=== PATIENT | male | born 1965 | race Caucasian/White ===

== ENCOUNTER 2019-11-05 12:15 | Inpatient (IN) ==
[2019-11-05] MEDS ORDERED: NS 1,000 ML IV ONE ×2 (13:13→15:13)
[2019-11-05] MEDS ORDERED: THIAMINE 100 MG in NS 50 ML IV ONE (13:13)
[2019-11-05] MEDS ORDERED: ATIVAN IV ONE (13:14)
[2019-11-05 13:41] LABS: BASO# 0.02 X1000 (0.0-0.2); BASO% 0.1 % (0.0-0.8); EOS# 0.01 X1000 (0.0-0.7); EOS% 0.1 % (0.0-10.0); HEMOGLOBIN 18.3 g/dL (14.0-18.0); IMM GRAN# 0.02 X1000 (0.0-0.04); IMM GRAN% 0.1 % (0.0-0.5); LYMPH# 0.56 X1000 (1.2-3.4); LYMPH% 3.7 % (20.5-51.1); MCH 31.4 PG (27-31); MCHC 34.5 g/dL (33-37); MCV 91.1 FL (81-99); MONO# 0.58 X1000 (0.11-0.59); MONO% 3.8 % (1.7-9.3); MPV 10.1 FL (7.4-10.4); NEUT# 14.01 X1000 (1.4-6.5); NEUT% 92.2 % (42.2-75.2); PLT 398 X1000 (130-400); RBC 5.82 XMIL (4.7-6.1); RDW 13.1 % (11.5-14.5)
[2019-11-05 13:56] LABS: AGAP 24; ALB/GLOB RATIO 1.2; ALBUMIN 4.6 g/dL (3.5-5.0); ALKALINE PHOSPHATASE 108 U/L (32-122); AMYLASE 104 U/L (20-200); BUN 12 mg/dL (8-22); CALCIUM 10.3 mg/dL (8.8-10.2); CHLORIDE 92 mmol/L (98-107); COSMO 282; ESTIMATED GFR > 60; GLUCOSE 250 mg/dL (70-104); GOT 29 U/L (10-34); GPT 36 U/L (10-44); LIPASE 259 U/L (13-60); MAGNESIUM 1.7 mg/dL (1.5-2.7); POTASSIUM 3.8 mmol/L (3.5-5.1); SODIUM 137 mmol/L (136-145); TCO2 21 mmol/L (25-35); TOTAL BILIRUBIN 0.38 mg/dL (0.20-1.00); TOTAL PROTEIN 8.5 g/dL (6.3-8.3)
[2019-11-05] MEDS ORDERED: DILAUDID IV ONE (15:12)
[2019-11-05] MEDS ORDERED: ZOFRAN IV ONE (15:12)
--- NOTE | 2019-11-05 16:39 | HISTORY AND PHYSICAL ---
CHIEF COMPLAINT: Abdominal pain. HISTORY OF PRESENT ILLNESS: Mr. Castillo is a 54-year-old gentleman who came into the emergency room with 2 day history of worsening upper abdominal pain associated with nausea and vomiting. He denies having any fever, diarrhea, or constipation. PAST MEDICAL HISTORY: 1. Type 1 diabetes mellitus. 2. Dyslipidemia. 3. Degenerative disk disease of cervical and lumbar spine. PAST SURGICAL HISTORY: C5-C6 and C6-C7 fusion with plate and screws. SOCIAL HISTORY: The patient has been drinking alcohol pretty regularly. He has used marijuana and methamphetamine in the past as well. Furthermore, he smokes 1 pack of cigarettes per day for the past 30 years. FAMILY HISTORY: Noncontributory. ALLERGIES: No known drug allergies reported. CURRENT HOME MEDICATIONS: 1. Aspirin 81 mg orally once daily. 2. Lovastatin 40 mg orally once daily at bedtime. 3. NovoLog insulin 7 units subcutaneously 3 times a day with meals as directed. 4. Tresiba insulin 30 units subcutaneously every 24 hours as directed. REVIEW OF SYSTEMS: A full 14-point review of systems was obtained that was pretty much the same as already has been explained in the HPI. PHYSICAL EXAMINATION: VITAL SIGNS: Temperature 98.7 degrees, pulse 115 per minute, blood pressure 201/112, respiratory rate 18 per minute, pulse oximetry 100% on room air. GENERAL: Patient is alert and awake. He appears to be in moderate distress secondary to abdominal pain. HEENT: Within normal limits. NECK: Supple without any thyromegaly. LYMPHATICS: No lymphadenopathy noted in the neck region. CHEST: Chest wall is nontender. CARDIOVASCULAR SYSTEM: First and second heart sounds are audible without any murmurs. Regular tachycardia is present. RESPIRATORY SYSTEM: Normal effort noted. Bilateral lung air entry is good without any rales or rhonchi. GASTROINTESTINAL SYSTEM: Abdomen is soft and slightly tender on deep palpation in the epigastric area. No guarding or rigidity are present. No viscera are palpable and normal bowel sounds are present. MUSCULOSKELETAL SYSTEM: No deformities are present. NEUROLOGIC: No focal deficits are present. GENITOURINARY: Deferred. PSYCHIATRIC: The patient appears to be somewhat anxious. INTEGUMENTARY: Skin is warm, dry, and without any rash. DIAGNOSTIC DATA: CBC shows WBC count of 15.20, hemoglobin 18.3, hematocrit 53.0 and platelet count of 398,000. Neutrophils were found to be 92.2%. Comprehensive metabolic panel showed glucose levels of 250, calcium 10.3, lipase 259, and plasma lactate at 2.8. Serum alcohol levels were undetected. IMPRESSION: 1. Acute pancreatitis. 2. Alcohol abuse. 3. Uncontrolled type 1 diabetes mellitus. 4. Dyslipidemia. PLAN: The patient will be admitted to the medical floor and will be kept NPO. We will give him IV fluids and give him opioid analgesics for pain control on as needed basis. We will also give him ondansetron IV on as-needed basis for nausea, vomiting and would also provide him thiamine 100 mg IV every 24 hours. We will provide him Lispro insulin as per sliding scale to control his glucose levels and give him lorazepam 1 mg IV q.4 hours as needed for alcohol withdrawal symptom control. Further recommendations will be as per hospital course. cc: Kevin Tellez MD
[2019-11-05] MEDS ORDERED: THIAMINE 100 MG in NS 50 ML IV SCH (16:59)
[2019-11-05] MEDS: ATIVAN IV PRN ×2 (17:45→23:34)
[2019-11-05] MEDS: APRESOLINE IV PRN ×2 (17:45→23:33)
[2019-11-05] MEDS: MORPHINE IV PRN ×2 (17:46→23:34)
[2019-11-05] MEDS: NS 1,000 ML IV SCH ×2 (18:14→22:24)
[2019-11-05] MEDS: HUMALOG SUBQ SCH (20:40)
[2019-11-05 20:56] LABS: URINE SOURCE CLEAN CATCH
[2019-11-05 20:59] LABS: UR EPITHELIAL CELLS <10 /HPF (<10); URINE BACTERIA NEGATIVE /HPF; URINE RBC <10 /HPF (<10); URINE WBC <10 /HPF (<10)
[2019-11-05 21:11] LABS: BILIRUBIN URINE NEGATIVE (NEGATIVE); BLOOD URINE NEGATIVE (NEGATIVE); COLOR YELLOW; GLUCOSE URINE >1000 mg/dL (NEGATIVE); KETONE URINE 80 mg/dL (NEGATIVE); LEUKOCYTES URINE NEGATIVE (NEGATIVE); NITRITE URINE NEGATIVE (NEGATIVE); PROTEIN URINE 30 mg/dL (NEGATIVE); SP GRAVITY URINE 1.027; TURBIDITY URINE CLEAR (CLEAR); UROBILINOGEN URINE NORMAL (NORMAL)
[2019-11-06] MEDS: ATIVAN IV PRN (04:32)
[2019-11-06] MEDS: NS 1,000 ML IV SCH ×4 (04:32→21:23)
[2019-11-06] MEDS: APRESOLINE IV PRN ×3 (04:32→23:34)
[2019-11-06] MEDS: MORPHINE IV PRN ×4 (04:32→21:22)
[2019-11-06] MEDS: HUMALOG SUBQ SCH ×4 (06:36→21:22)
[2019-11-06 07:57] LABS: BASO# 0.01 X1000 (0.0-0.2); BASO% 0.1 % (0.0-0.8); HEMATOCRIT 47.7 % (42.0-52.0); HEMOGLOBIN 16.2 g/dL (14.0-18.0); IMM GRAN# 0.04 X1000 (0.0-0.04); IMM GRAN% 0.2 % (0.0-0.5); LYMPH# 0.61 X1000 (1.2-3.4); LYMPH% 3.2 % (20.5-51.1); MCV 94.1 FL (81-99); MONO# 1.17 X1000 (0.11-0.59); MONO% 6.2 % (1.7-9.3); MPV 10.3 FL (7.4-10.4); NEUT# 16.94 X1000 (1.4-6.5); NEUT% 90.3 % (42.2-75.2); PLT 346 X1000 (130-400); RBC 5.07 XMIL (4.7-6.1); RDW 13.7 % (11.5-14.5); WBC 18.77 X1000 (4.8-10.8)
[2019-11-06 08:12] LABS: AGAP 15; ALB/GLOB RATIO 1.8; ALBUMIN 4.4 g/dL (3.5-5.0); ALKALINE PHOSPHATASE 85 U/L (32-122); AMYLASE 189 U/L (20-200); BUN 13 mg/dL (8-22); CALCIUM 8.8 mg/dL (8.8-10.2); CHLORIDE 96 mmol/L (98-107); COSMO 274; CREATININE 0.6 mg/dL (0.7-1.2); ESTIMATED GFR > 60; GLUCOSE 237 mg/dL (70-104); GOT 18 U/L (10-34); GPT 24 U/L (10-44); LIPASE 292 U/L (13-60); MAGNESIUM 1.6 mg/dL (1.5-2.7); POTASSIUM 3.6 mmol/L (3.5-5.1); SODIUM 133 mmol/L (136-145); TCO2 22 mmol/L (25-35); TOTAL BILIRUBIN 0.25 mg/dL (0.20-1.00); TOTAL PROTEIN 6.8 g/dL (6.3-8.3)
[2019-11-06] MEDS ORDERED: PROTONIX 80 MG in NS 80 ML IV ONE (08:38)
[2019-11-06] MEDS: PROTONIX 80 MG in NS 80 ML IV SCH ×2 (10:03→21:19)
[2019-11-06] MEDS: THIAMINE 100 MG in NS 50 ML IV SCH (13:04)
--- NOTE | 2019-11-06 13:56 | PROGRESS NOTE ---
DATE: 11/06/2019 SUBJECTIVE: Patient feels better this morning, although he does have some epigastric discomfort. OBJECTIVE: Vital Signs: Temperature 98.6 degrees, pulse 106 per minute, respiratory rate 17 per minute, blood pressure 197/99, pulse oximetry 93 percent on room air. General: Patient is alert and oriented x3. He does have some somnolence because of the opioid analgesic being given to him before I saw him. Cardiovascular System: First and second heart sounds are audible without any murmurs or gallops. Respiratory System: Bilateral lung air entry is slightly decreased but there are no rales or rhonchi present on auscultation. Gastrointestinal System: Abdomen is soft and slightly tender on deep palpation in the epigastric area. No guarding, rigidity, or rebound tenderness are present. Bowel sounds are slightly hyperactive. Diagnostic Data: CBC shows WBC count of 18.77 with 90.2% neutrophils. Rest of the CBC is nondiagnostic. Comprehensive metabolic panel showed a glucose level of 237. Rest of the comprehensive metabolic panel is nondiagnostic. Lipase levels are elevated at 292 and amylase levels are normal at 189. Plasma lactate levels done yesterday afternoon were elevated at 2.4. NURSING REPORT: The patient was reported to have coffee-grounds material vomiting earlier this morning but he has been hemodynamically in stable condition ever since. IMPRESSION: 1. Upper gastrointestinal bleeding in the setting of alcohol abuse and possible esophageal/gastric varices. 2. Acute pancreatitis. 3. Uncontrolled type 1 diabetes mellitus. 4. Dyslipidemia. PLAN: The patient has been given IV pantoprazole 80 mg this morning and will be continued as pantoprazole IV drip. He has been getting thiamine 100 mg IV once daily, which will be continued. We will also continue with IV hydration and give him analgesic through the IV. He has been getting currently morphine 4 mg IV q.4 hours as needed and has been getting Zofran 4 mg IV q.4 hours as needed for nausea/vomiting. His blood pressure has been elevated but that appears to be secondary to pain and discomfort since he has never had any diagnosis of hypertension in the past. We will continue with lorazepam 1 mg IV q.4 hours as needed for agitation and alcohol withdrawal symptoms. Furthermore, he will continue to get hydralazine 10 mg IV q.4 hours as needed for elevated blood pressure. His blood glucose levels are currently controlled with lispro insulin as per sliding scale. GI consultation with Dr. Rivas has been obtained, who I believe has scheduled him to have an EGD done in the morning tomorrow. Currently, the patient has been getting clear liquids and we will continue to monitor his overall condition. cc: Kevin Tellez MD
[2019-11-06] MEDS: FOLIC ACID PO SCH (14:48)
--- NOTE | 2019-11-06 15:04 | GASTROENTEROLOGY CONSULTATION ---
DATE: 11/06/2019 REASON FOR CONSULT: Dark emesis with blood. HISTORY OF PRESENT ILLNESS: Mr. Castillo is a 54-year-old male who came into the ED yesterday mentioning that he had abdominal pain in the epigastric area, accompanied with nausea and vomiting noticing coffee ground emesis. Rated his pain as 6/10 and described it as a sharp pain. The patient said that this has been going on for the last 1 week onwards. Patient takes aspirin on a daily basis and also takes goody powders frequently. Patient has periods o constipation and diarrhea. He mentioned that sometimes he has 2-3 BM's in a day. The patient is an alcoholic and drinks 3 to 4 cans of beer on a regular basis, consumes marijuana, meth occasionally and smokes 1 pack of cigarettes per day. The patient's hemoglobin and hematocrit on admission was 18.3 and 53.0. His hemoglobin today is 16.2 and 47.7. The patient's lipase and amylase were 189 and 292. PAST MEDICAL HISTORY: Diabetes type 1, hyperlipidemia and degenerative disk disease of the cervical and lumbar spine. PAST SURGICAL HISTORY: Spine fusions with plates and screws, C5-C6 and C6-C7. ALLERGIES: No known drug allergies. SOCIAL HISTORY: The patient is and has 2 kids. He drinks 3 to 4 cans of beer on a daily basis. Consumes marijuana and meth occasionally. Smokes 1 pack of cigarettes per day. FAMILY HISTORY: No significant GI malignancies. HOME MEDICATIONS: Aspirin 81 mg daily, lovastatin 40 mg p.o. daily, and Tresiba 30 units subQ daily. REVIEW OF SYSTEMS: As per HPI. Otherwise, 12 point review of system is negative. PHYSICAL EXAMINATION: Vital Signs: Temperature 98.6 degrees, pulse 106, respirations 17, blood pressure 197/99, oxygen saturation is 93% on room air. The patient's weight is 192 pounds. BMI is 27.5 kg/m2. General: He is alert, oriented x3, in no acute distress. HEENT: Pale conjunctivae. No icterus. PERRL. Neck: Supple. Lungs: Clear to auscultation. Cardiovascular: Patient is tachycardic. Abdomen: Soft. Tender in the epigastric area. Active bowel sounds heard in all 4 quadrants. Extremities: No clubbing, no cyanosis, no edema. Pedal pulses 2+ present bilaterally. Neurologic: Alert and oriented x3. Nonfocal. Cranial nerves 2- 12 grossly intact. LABS: WBCs 18.77, RBCs 5.07, hemoglobin 16.2, hematocrit is 47.7, platelet count is 346,000. Sodium 133, potassium 3.6, chloride 96, carbon dioxide 22, anion gap 15, BUN 13, creatinine is 0.6, glucose is 237, calcium 8.8, magnesium 1.6. Total bilirubin is 0.25, AST 18, ALT 24, alkaline phos 85, albumin is 4.4, amylase 189, lipase 292, plasma lactate is 2.4. IMPRESSION AND PLAN: 1. Acute pancreatitis. 2. Abdominal pain. 3. Nausea and vomiting. 4. Coffee ground emesis 5. Tobacco abuse. 6. Drug abuse. 7. Diabetes type 1. 8. Hyponatremia. 9. Alcohol abuse. PLAN: Mr. Castillo is a 54-year-old male with a history of alcohol, tobacco and drug abuse. GI has been consulted for his upper GI bleed. We plan to do an EGD tomorrow to find out the cause of his bleeding. The patient's hemoglobin and hematocrit currently is 16.2 and 47.7. The patient is currently receiving IV fluids at 150 mL. He is receiving antiemetic Zofran for his nausea and vomiting. We will continue him with PPI's. He is also receiving IV thiamine and folic acid 1 mg p.o. daily. We have discussed the risks, benefits, and alternatives of the procedure to the patient. Further plan of care will be based on the EGD findings. This plan was discussed with Dr. Rivas. Thank you for your consult. Please call us for any further questions or concerns. Dictated by DELLA Sierra for Rodrick Rivas MD cc: MD Kevin Orozco MD [facility]
[2019-11-07] MEDS: NS 1,000 ML IV SCH ×3 (02:35→16:34)
[2019-11-07] MEDS: ZOFRAN IV PRN ×5 (02:36→21:12)
[2019-11-07] MEDS: MORPHINE IV PRN ×5 (02:36→21:12)
[2019-11-07] MEDS: PROTONIX 80 MG in NS 80 ML IV SCH ×2 (03:52→08:03)
[2019-11-07] MEDS: HUMALOG SUBQ SCH ×4 (06:19→21:13)
[2019-11-07 07:00] LABS: BASO# 0.03 X1000 (0.0-0.2); BASO% 0.2 % (0.0-0.8); EOS# 0.01 X1000 (0.0-0.7); EOS% 0.1 % (0.0-10.0); HEMATOCRIT 46.2 % (42.0-52.0); HEMOGLOBIN 15.4 g/dL (14.0-18.0); IMM GRAN# 0.06 X1000 (0.0-0.04); IMM GRAN% 0.3 % (0.0-0.5); LYMPH# 1.12 X1000 (1.2-3.4); LYMPH% 6.4 % (20.5-51.1); MCH 31.9 PG (27-31); MCHC 33.3 g/dL (33-37); MCV 95.7 FL (81-99); MONO# 0.95 X1000 (0.11-0.59); MONO% 5.5 % (1.7-9.3); NEUT# 15.26 X1000 (1.4-6.5); NEUT% 87.5 % (42.2-75.2); PLT 292 X1000 (130-400); RBC 4.83 XMIL (4.7-6.1); RDW 14.1 % (11.5-14.5); WBC 17.43 X1000 (4.8-10.8)
[2019-11-07 07:24] LABS: AGAP 15; ALB/GLOB RATIO 1.4; ALBUMIN 3.8 g/dL (3.5-5.0); ALKALINE PHOSPHATASE 76 U/L (32-122); BUN 14 mg/dL (8-22); CALCIUM 8.5 mg/dL (8.8-10.2); CHLORIDE 101 mmol/L (98-107); COSMO 277; CREATININE 0.6 mg/dL (0.7-1.2); ESTIMATED GFR > 60; GLUCOSE 145 mg/dL (70-104); GOT 16 U/L (10-34); GPT 17 U/L (10-44); POTASSIUM 3.6 mmol/L (3.5-5.1); SODIUM 137 mmol/L (136-145); TCO2 21 mmol/L (25-35); TOTAL PROTEIN 6.6 g/dL (6.3-8.3)
[2019-11-07 07:26] LABS: LYMPHS 4 % (21-51); MONO 4 % (1-9); SEGS 92 % (42-75)
[2019-11-07] MEDS ORDERED: VERSED ONE (07:29)
[2019-11-07] MEDS ORDERED: DIPRIVAN 1% ONE ×2 (07:29→07:32)
[2019-11-07] MEDS ORDERED: ROBINUL ONE (07:29)
[2019-11-07] MEDS ORDERED: XYLOCAINE-MPF 2% ONE ×2 (07:29→07:32)
--- NOTE | 2019-11-07 08:36 | PROGRESS NOTE ---
DATE: 11/07/2019 SUBJECTIVE: Patient feels much better this morning. He does have slight abdominal discomfort, however. OBJECTIVE: Vital Signs: Temperature 98.7 degrees, pulse 106 per minute, respiratory rate 20 per minute, blood pressure 194/101, pulse oximetry 97% on room air. General: Patient is alert and oriented x3. He does not appear to be in any acute distress. Cardiovascular System: First and second heart sounds are audible without any murmurs or gallops. Respiratory System: Bilateral lung air entry is good without any rales or rhonchi. Gastrointestinal System: Abdomen is soft and slightly tender on deep palpation in the epigastric area. No guarding, rigidity, or rebound tenderness are present. Bowel sounds are normal. DIAGNOSTIC DATA: CBC shows WBC count of 17.43 with 87.5% neutrophils. Rest of the CBC is nondiagnostic. Comprehensive metabolic panel is nondiagnostic. IMPRESSION: 1. Upper gastrointestinal bleeding in the setting of alcohol abuse and possible esophageal/gastric varices. 2. Acute pancreatitis. 3. Uncontrolled type 1 diabetes mellitus. 4. Dyslipidemia. PLAN: The patient will be continued on proton pump inhibitors IV, along with IV hydration. He will continue with morphine for pain control on as-needed basis, and would also continue with lorazepam IV as needed for agitation and alcohol withdrawal symptoms. His blood pressure has been elevated and, although he has been getting hydralazine 10 mg IV on as-needed basis, I am going to start him on amlodipine 5 mg orally once daily because of persistent elevation of his blood pressure. We will continue with glucose control with lispro insulin as per sliding scale. He is scheduled to have an EGD done today. Further recommendations will be as per hospital course. cc: Kevin Tellez MD
--- NOTE | 2019-11-07 09:17 | ENDOSCOPY OPERATIVE NOTE ---
[facility] ENDOSCOPY OPERATIVE NOTE , EGD PROCEDURE REPORT EXAM DATE: 11/07/2019 PATIENT NAME: Cricket Castillo MR#: [id number] BIRTHDATE: 1965 ATTENDING: Hossein Zhou MD STATUS: inpatient AIRPORT DUTY MANAGER: Eduarda Samuel INDICATIONS: The patient is a 54 yr old male here for an EGD due to Coffee ground emesis, Alocholism , Pancreatitis. PROCEDURE PERFORMED: EGD, diagnostic MEDICATIONS: Per Anesthesia ESTIMATED BLOOD LOSS: None CONSENT: The patient understands the risks and benefits of the procedure and understands that these r isks include, but are not limited to: sedation, allergic reaction, infection, perforation and/or bleeding. Alternative means of evaluation and treatment include, among others: physical exam, x-rays, and/or surgical intervention. The patient elects to proceed with this endoscopic procedure. DESCRIPTION OF PROCEDURE: During pre-op preparation period all mechanical and medical equipment was c hecked for proper function. Hand hygiene and appropriate measures for infection prevention was taken. After the risks, benefits and alternatives of the procedure were thoroughly explained, Informed consent was verified, confirmed and timeout was successfully executed by the treatment team. The patient was anesthetized with topical anesthesia and the RO45-[id number] ([id number]) endoscope was introduced through the mouth and advanced to the second portion of the duoden um. Retroflexion was performed in the stomach and revealed no abnormalities. The gastroscope was then slowly withdraw n and removed. The patient's toleration of the procedure was good. ESOPHAGUS: Z line was noted at 45 cms. Small sliding Hiatal hernia 1-2 cms was noted. Reflux esoph agitis was found in the distal esophagus. Esophagitis was LA Class D: Mucosal breaks involving more than 75% of esophage al circumference. STOMACH: Mild gastritis was noted in the distal body and antrum; No active bleeding noted. DUODENUM: Mild duodenal inflammation was found in the duodenal bulb. The duodenal mucosa showed no abnormalities in the 2nd part of the duodenum. ADVERSE EVENTS: There were no complications. IMPRESSIONS: 1. Z line was noted at 45 cms. Small sliding Hiatal hernia 1-2 cms was noted 2. Reflux esophagitis in the distal esophagus 3. Mild gastritis was noted in the distal body and antrum; No active bleeding noted 4. Duodenal inflammation was found in the duodenal bulb 5. The duodenal mucosa showed no abnormalities in the 2nd part of the duodenum RECOMMENDATIONS: Start Protonix 40 mg Twice daily for 90 days and then wean down to Pepcid 20 mg twice daily as needed. Quit alcohol completely. Avoid NSAIDs GERD lifetsyle changes REPEAT EXAM: Return in 3 months for EGD. Hossein Zhou MD eSigned: Hossein Zhou MD 11/07/2019 9:16 AM CC: CPT CODES: 60170 Upper gastrointestinal endoscopy including esophagus, stomach, and either the du odenum and/or jejunum as appropriate; diagnostic, with or without collection of specimen(s) by brushing or washing (separate procedure) ICD CODES: The ICD and CPT codes recommended by this software are interpretations from the data that the [facility] staff has captured with the software. The verification of the translation of this report to the ICD and CPT co sheree and modifiers is the sole responsibility of the health care institution and practicing physician where this report was generated. [employer] will not be held responsible for the validity of the ICD and CPT codes i ncluded on this report. [facility] assumes no liability for data contained or not contained herein. CPT is a registered tra demark of the [employer]. PATIENT NAME: Cricket Castillo MR#: [id number]
[2019-11-07] MEDS: FOLIC ACID PO SCH (09:31)
[2019-11-07] MEDS: SODIUM CHLORIDE 0.9% INJ SCH (10:47)
[2019-11-07] MEDS: CARAFATE PO SCH ×3 (10:47→21:12)
[2019-11-07] MEDS: PROTONIX IV SCH ×2 (10:47→21:12)
[2019-11-07] MEDS: NORVASC PO SCH (15:07)
[2019-11-07] MEDS: THIAMINE 100 MG in NS 50 ML IV SCH (15:07)
[2019-11-07] MEDS: APRESOLINE IV PRN (17:59)
[2019-11-08] MEDS: NS 1,000 ML IV SCH ×5 (00:24→21:08)
[2019-11-08] MEDS: MORPHINE IV PRN (04:45)
[2019-11-08] MEDS: APRESOLINE IV PRN ×2 (04:45→20:18)
[2019-11-08] MEDS: CARAFATE PO SCH ×4 (04:45→21:09)
[2019-11-08] MEDS: ZOFRAN IV PRN ×2 (04:45→20:18)
[2019-11-08 07:00] LABS: BASO# 0.01 X1000 (0.0-0.2); BASO% 0.1 % (0.0-0.8); EOS# 0.01 X1000 (0.0-0.7); EOS% 0.1 % (0.0-10.0); HEMATOCRIT 47.2 % (42.0-52.0); HEMOGLOBIN 15.7 g/dL (14.0-18.0); IMM GRAN# 0.05 X1000 (0.0-0.04); IMM GRAN% 0.3 % (0.0-0.5); LYMPH# 1.33 X1000 (1.2-3.4); LYMPH% 8.4 % (20.5-51.1); MCH 31.3 PG (27-31); MCHC 33.3 g/dL (33-37); MONO# 0.97 X1000 (0.11-0.59); MONO% 6.1 % (1.7-9.3); MPV 10.1 FL (7.4-10.4); PLT 288 X1000 (130-400); RBC 5.02 XMIL (4.7-6.1); RDW 13.5 % (11.5-14.5); WBC 15.87 X1000 (4.8-10.8)
[2019-11-08 07:34] LABS: AGAP 18; ALB/GLOB RATIO 1.4; ALBUMIN 3.8 g/dL (3.5-5.0); ALKALINE PHOSPHATASE 80 U/L (32-122); AMYLASE 136 U/L (20-200); BUN 8 mg/dL (8-22); CALCIUM 8.5 mg/dL (8.8-10.2); CHLORIDE 95 mmol/L (98-107); COSMO 268; CREATININE 0.6 mg/dL (0.7-1.2); ESTIMATED GFR > 60; GLUCOSE 119 mg/dL (70-104); GOT 16 U/L (10-34); GPT 17 U/L (10-44); LIPASE 48 U/L (13-60); POTASSIUM 3.4 mmol/L (3.5-5.1); SODIUM 134 mmol/L (136-145); TCO2 21 mmol/L (25-35); TOTAL BILIRUBIN 0.41 mg/dL (0.20-1.00); TOTAL PROTEIN 6.5 g/dL (6.3-8.3)
[2019-11-08] MEDS: HUMALOG SUBQ SCH ×3 (07:38→17:10)
[2019-11-08] MEDS: DILAUDID IV PRN ×3 (07:56→20:19)
[2019-11-08] MEDS: PROTONIX IV SCH ×2 (08:20→21:09)
[2019-11-08] MEDS: NORVASC PO SCH (08:21)
[2019-11-08] MEDS: FOLIC ACID PO SCH (08:21)
[2019-11-08] MEDS: SODIUM CHLORIDE 0.9% INJ SCH (08:27)
[2019-11-08] MEDS ORDERED: KLOR-CON PO ONE (08:52)
--- NOTE | 2019-11-08 09:21 | PROGRESS NOTE ---
DATE: 11/08/2019 SUBJECTIVE: The patient complained of having significant epigastric pain. He would like to have his pain medicine dosage increased. OBJECTIVE: Vital Signs: Temperature 97.9 degrees, pulse 98 per minute, respiratory rate 14 per minute, blood pressure 124/96, pulse oximetry 96% on room air. General: The patient is alert and oriented x3. He appears to be in mild distress secondary to pain. Cardiovascular System: First and second heart sounds are audible without murmurs or gallops. Respiratory System: Bilateral lung air entry is good without any rales or rhonchi. GASTROINTESTINAL: The abdomen is soft and nondistended. It is slightly tender on deep palpation in the epigastric area. No guarding, rigidity, or rebound tenderness noted. Bowel sounds are normal. DIAGNOSTIC DATA: CBC shows WBC count of 15.87 with 85% neutrophils. The rest of the CBC is nondiagnostic. Comprehensive metabolic panel showed potassium levels of 3.4, with a glucose level of 119 and calcium level of 8.5. The rest of the comprehensive metabolic panel is nondiagnostic. Amylase and lipase levels are both within normal range. EGD done yesterday showed reflux esophagitis in the distal esophagus, with mild gastritis and duodenal inflammation, but no active bleeding. IMPRESSION: 1. Acute pancreatitis that has improved. 2. Acute gastritis. 3. Reflux esophagitis. 4. Duodenitis. 5. Uncontrolled type 1 diabetes mellitus. 6. Dyslipidemia. PLAN: The patient will be continued on IV fluids, along with IV proton pump inhibitor. He will be continued on lorazepam IV on an as-needed basis for alcohol withdrawal symptoms and agitation. His blood pressure has been elevated for which he has been getting hydralazine 10 mg IV on an as needed basis and amlodipine 5 mg was added yesterday. That has improved his blood pressure readings. I believe some of the blood pressure elevation is secondary to pain and therefore I am going to discontinue morphine and give him Dilaudid 1 mg IV q.3h. as needed for pain relief. Since he continues to have significant abdominal pain despite having normal amylase and lipase, we will obtain CT scan of the abdomen and pelvis for further evaluation. He did have esophagitis, gastritis and duodenitis for which he will continue with pantoprazole IV. We will continue with glucose control with lispro insulin as per sliding scale. Further recommendations will be as per hospital course. We expect the patient to be discharged home in the next 2 to 3 days. cc: Kevin Tellez MD [facility]TDD
--- NOTE | 2019-11-08 11:38 | Diag Imaging Result Doc PS360 ---
EXAM: CT ABD/PELVIS W/PO AND IV CON HISTORY: Abdominal Pain TECHNIQUE: CT abdomen and pelvis with oral and intravenous contrast COMPARISON: 04/24/2016 FINDINGS: No calcified gallstones or adjacent inflammation. There is fatty infiltration of the liver. Normal spleen. There is a 9 mm hypodense area in the uncinate process of the pancreas. Mildly prominent pancreatic duct. Nodular prominence at the ampulla of Vater. Normal adrenal glands. There is a 19 mm left upper pole renal cyst. No hydronephrosis. No aortic aneurysm. Moderate atherosclerosis. Normal appendix. No abscess. No bowel obstruction. The scattered colonic diverticula. The urinary bladder is distended and appears normal. Normal prostate. No enlarged lymph nodes. IMPRESSION: 1.There appears to be a small pancreatic mass. Further workup recommended. 2.There is fatty infiltration of the liver 3.Colonic diverticulosis This exam was performed using automated exposure control, adjustment of mA or kV according to patient size, and/or use of iterative reconstruction technique. Electronically signed by Delroy Lara 11/08/2019 11:36 AM
[2019-11-08] MEDS: THIAMINE 100 MG in NS 50 ML IV SCH (12:33)
--- NOTE | 2019-11-08 14:04 | GASTROENTEROLOGY PROGRESS NOTE ---
DATE: 11/08/2019 SUBJECTIVE: Mr. Castillo is a 54-year-old male resting in bed. The patient is complaining of abdominal pain in the epigastric area. He has denied any vomiting, but complains of being nauseated and has no appetite. The patient did have one bowel movement today. OBJECTIVE: Vital Signs: Temperature 99.2, pulse 96, respirations 14, blood pressure 181/74, and oxygen saturation 95 percent on room air. The patient's weight is 192 pounds. BMI is 27.5 kg/m2. General: He is alert and oriented x3, and in no acute distress. HEENT: Pale conjunctivae. No icterus. PERRL. Neck: Supple. Lungs: Clear to auscultation. Cardiovascular: The patient is tachycardic. Abdomen: Mildly distended. Tender in the epigastric area. Active bowel sounds heard in all 4 quadrants. Extremities: No clubbing. No cyanosis. No edema. Pedal pulses 2+ present bilaterally. Neurologic: Alert and oriented times 3. LABORATORY: WBC 15.87, RBC 5.02, hemoglobin 15.7, hematocrit 47.2, and platelet count is 288,000. Sodium 134, potassium 3.4, chloride 95, carbon dioxide 21, anion gap 18, BUN 8, creatinine 0.6, glucose 119, calcium 8.5, total bilirubin 0.41, AST 16, ALT 17, alkaline phos 80, and albumin is 3.8. IMAGING: Abdomen and pelvis CT today has shown a small pancreatic mass, fatty infiltration of the liver and colonic diverticulosis. EGD FINDINGS: We did an EGD yesterday. The patient had a small hiatal hernia, 1 to 2 cm reflects esophagitis in the distal esophagus, mild gastritis in the distal body and antrum. No active bleeding. Duodenal inflammation in the duodenal bulb. IMPRESSION AND PLAN: - Acute pancreatitis - GI bleed - LA grade D esophagitis - Pancreatic lesion - Gastritis - Duodenitis - Polysubstance abuse - IDDM1 PLAN: Mr. Castillo is a 54 year old male with a history of alcohol, tobacco, and drug abuse. GI is following him for his upper GI bleed. An EGD was done yesterday, and patient had hiatal hernia, reflux esophagitis, gastritis and duodenal inflammation. The patient has been advised to continue Protonix for 90 days, and then wean down to Pepcid 20 mg as needed twice a day. He is also advised to avoid NSAIDs and quit alcohol completely. The patient is currently on IV fluids normal saline at 150 mL/hour for his nausea and vomiting. He is on Zofran 4 mg as needed. We will continue PPIs twice a day. He is on Carafate, thiamine, and folic acid. The patient's abdomen and pelvis CT has shown that he has a small pancreatic mass. Patient will need an outpatient Ultrasound Guided Endoscopic done either at [facility] or [facility]. We have advised the patient to follow us up as an outpatient in 4 weeks. This plan was discussed with Dr. Pham. Please call us for any further questions or concerns. Dictated by DELLA Sierra for Filiberto Pham MD cc: Kevin Tellez MD Physician Attestation I have seen and examined the patient. I have discussed and reviewed the note by Bee HULL and agree with findings and plan as documented. In brief, Ms. Castillo is a 54 year old man with IDDM1, HLD, polysubstance abuse, tobacco abuse, and alcoholism who presented with coffee ground emesis and acute alcoholic pancreatitis. EGD showed LA Grade D esophagitis, gastritis, hiatal hernia, and duodenitis. He was not improving after several days despite supportive care with bowel rest, IVFs, PPI, and pain control. CT A/P showed fatty liver, diverticulosis, and a 9mm hypodense area in the uncinate process of the pancreas with mildly prominent pancreatic duct concerning for pancreatic mass. Continue PPI BID and carafate. Advance diet to low fat as tolerated. If he does not improve with supportive measures, then he may need transfer to [facility] for EUS with FNA of pancreatic lesion. Otherwise, he will need outpatient referral for further evaluation. [facility]
[2019-11-09] MEDS: NS 1,000 ML IV SCH ×4 (00:50→18:43)
[2019-11-09] MEDS: ZOFRAN IV PRN (01:10)
[2019-11-09] MEDS: DILAUDID IV PRN ×7 (01:10→21:44)
[2019-11-09] MEDS: HUMALOG SUBQ SCH ×5 (01:19→21:27)
[2019-11-09] MEDS: CARAFATE PO SCH ×5 (03:54→21:23)
[2019-11-09 07:01] LABS: EOS# 0.04 X1000 (0.0-0.7); EOS% 0.4 % (0.0-10.0); HEMATOCRIT 42.7 % (42.0-52.0); HEMOGLOBIN 14.5 g/dL (14.0-18.0); IMM GRAN# 0.05 X1000 (0.0-0.04); IMM GRAN% 0.4 % (0.0-0.5); LYMPH# 1.09 X1000 (1.2-3.4); LYMPH% 9.7 % (20.5-51.1); MCH 31.7 PG (27-31); MCV 93.2 FL (81-99); MONO# 0.87 X1000 (0.11-0.59); MONO% 7.7 % (1.7-9.3); MPV 9.9 FL (7.4-10.4); NEUT# 9.21 X1000 (1.4-6.5); NEUT% 81.8 % (42.2-75.2); PLT 267 X1000 (130-400); RBC 4.58 XMIL (4.7-6.1); RDW 13.1 % (11.5-14.5); WBC 11.26 X1000 (4.8-10.8)
[2019-11-09 07:28] LABS: AGAP 9; BUN 8 mg/dL (8-22); CALCIUM 8.1 mg/dL (8.8-10.2); CHLORIDE 97 mmol/L (98-107); COSMO 266; CREATININE 0.6 mg/dL (0.7-1.2); ESTIMATED GFR > 60; GLUCOSE 157 mg/dL (70-104); POTASSIUM 3.7 mmol/L (3.5-5.1); SODIUM 132 mmol/L (136-145); TCO2 26 mmol/L (25-35)
--- NOTE | 2019-11-09 08:00 | PROGRESS NOTE ---
DATE: 11/09/2019 SUBJECTIVE: Patient denies having any acute complaints this morning and feels well. OBJECTIVE: Vital Signs: Temperature 97.5 degrees, pulse 84 per minute, respiratory rate 17 per minute, blood pressure 183/80, pulse oximetry 94% on room air. General: Patient is alert and oriented x3. He does not appear to be in any acute distress. Cardiovascular System: First and second heart sounds are audible without any murmurs or gallops. Respiratory System: Bilateral lung air entry is good without any rales or rhonchi. Gastrointestinal System: Abdomen is soft and nondistended. It is nontender on palpation, and normal bowel sounds are present. DIAGNOSTIC DATA: CBC shows WBC count of 11.26 with 81.8% neutrophils. Rest of the CBC is nondiagnostic. Chemistry shows sodium levels of 132, and calcium levels of 8.1 with glucose levels of 157. Rest of the chemistry is nondiagnostic. CT scan of the abdomen and pelvis obtained yesterday showed small 9 mm hypodense area in the uncinate process of the pancreas. Further workup has been recommended. IMPRESSION: 1. Acute pancreatitis. 2. Acute gastritis. 3. Reflux esophagitis. 4. Duodenitis. 5. Uncontrolled type 1 diabetes mellitus. 6. Uncontrolled hypertension. 7. Pancreatic mass. 8. Dyslipidemia. PLAN: The patient will be continued on IV fluids, along with pain control with hydromorphone on an as-needed basis. I am going to increase the dose of amlodipine to 10 mg a day, and would continue with hydralazine IV as needed for elevated blood pressure. We will also continue with proton pump inhibitors and continue giving him lorazepam as needed for alcohol withdrawal symptoms. Elevated glucose control will be continued with lispro insulin as per sliding scale. As far as the pancreatic mass is concerned, Gastroenterology has recommended ultrasonic-guided endoscopic evaluation, either at [place] or [facility], which will be arranged as an outpatient. He has been getting a clear liquid diet that will be advanced to full liquids, and I am going to start him on lactulose as well since he appears constipated. He most likely will be discharged home in the next 1 to 2 days. cc: Kevin Tellez MD
[2019-11-09] MEDS: PROTONIX IV SCH ×2 (08:28→21:22)
[2019-11-09] MEDS: LACTULOSE PO SCH ×2 (08:28→21:28)
[2019-11-09] MEDS: FOLIC ACID PO SCH (08:28)
[2019-11-09] MEDS: NORVASC PO SCH (08:28)
[2019-11-09] MEDS: SODIUM CHLORIDE 0.9% INJ SCH (10:13)
[2019-11-09] MEDS: THIAMINE 100 MG in NS 50 ML IV SCH (12:24)
--- NOTE | 2019-11-09 15:09 | GASTROENTEROLOGY PROGRESS NOTE ---
DATE: 11/09/2019 SUBJECTIVE: Mr. Castillo is a 54-year-old male resting in bed. The patient is complaining of mild abdominal pain in the epigastric area. He has denied any nausea, vomiting, but did mention that he does not have any appetite to eat anything. The patient has denied having any bowel movements today. OBJECTIVE: Vital Signs: Temperature 97.5 degrees, pulse is 84, respirations 17, blood pressure 183/80, oxygen saturation 94% on room air. The patient's weight is 192 pounds. BMI is 27.5 Kg/m sq. General: He is alert, oriented x3, and in no acute distress. HEENT: Pale conjunctivae, no icterus. PERRL. Neck: Supple. Lungs: Clear to auscultation. Cardiovascular: Regular rate and rhythm. Abdomen: Mildly distended. Tender in the epigastric area. Active bowel sounds heard in all 4 quadrants. Extremities: No clubbing, no cyanosis, no edema. Pedal pulses 2+ present bilaterally. Neurologic: Alert, oriented x3. LABS: WBCs 11.26, RBCs 4.58, hemoglobin is 14.5, hematocrit is 42.7, platelet count is 267,000. Sodium 132, potassium 3.7, chloride 97, carbon dioxide 26, anion gap 9. BUN 8. Creatinine is 0.6. Glucose is 157. Calcium is 8.1. IMAGING: Abdomen and pelvis CT yesterday showed small pancreatic mass, fatty infiltrations of the liver, and colonic diverticulosis. IMPRESSION AND PLAN: - Acute pancreatitis - GI bleed - LA grade D esophagitis - Pancreatic lesion - Gastritis - Duodenitis - Polysubstance abuse - IDDM1 PLAN: Mr. Castillo is a 54-year-old male with a history of alcohol, tobacco, and drug abuse. GI is following him for acute GI bleed. An EGD was done, and the patient had hiatal hernia, reflux esophagitis, gastritis, and duodenitis. We will continue patient with PPIs for 90 days and then wean down to Pepcid 20 mg as needed. He is on IV fluids normal saline at 150 mL. Continue patient with Carafate 1 g p.o. every 6 hours. We will advance patient's diet to low-fat diet. We will continue to monitor patient and provide supportive care. If the patient's condition does not improve, he may need EUS at [place] or [facility]. This plan was discussed with Dr. Pham. Please call us for any further questions or concerns. Dictated by DELLA Sierra for Filiberto Pham MD cc: Kevin Tellez MD Physician Attestation I have seen and examined the patient. I have discussed and reviewed the note by Bee HULL and agree with findings and plan as documented. In brief, Ms. Castillo is a 54 year old man with IDDM1, HLD, polysubstance abuse, tobacco abuse, and alcoholism who presented with coffee ground emesis and acute alcoholic pancreatitis. EGD showed LA Grade D esophagitis, gastritis, hiatal hernia, and duodenitis. He has a subcentimeter lesion in uncinate process of the pancreas. His abdominal pain is improving. He has some mild abdominal pain. Recommend outpatient referral for EUS and FNA of pancreatic lesion. Continue PPI PO BID for 3 months. He can stay on carafate liquid QID for 2 weeks. Recommend repeat EGD in 3 months to assess for healing of his esophagitis. Advance diet as tolerated. MTDD
[2019-11-10] MEDS: DILAUDID IV PRN ×2 (01:54→05:16)
[2019-11-10] MEDS: CARAFATE PO SCH ×2 (05:57→09:35)
[2019-11-10] MEDS: NS 1,000 ML IV SCH (05:57)
[2019-11-10] MEDS: HUMALOG SUBQ SCH (06:54)
[2019-11-10 07:07] VITALS: BP 176/93
[2019-11-10] MEDS: FOLIC ACID PO SCH (09:35)
[2019-11-10] MEDS: NORVASC PO SCH (09:35)
--- NOTE | 2019-11-10 10:23 | DISCHARGE SUMMARY ---
ADMISSION DATE: 11/05/2019 DISCHARGE DATE: 11/10/2019 DISCHARGE DIAGNOSES: 1. Acute pancreatitis. 2. Acute gastritis. 3. Reflux esophagitis. 4. Duodenitis. 5. Uncontrolled type 1 diabetes mellitus. 6. Uncontrolled hypertension. 7. Pancreatic mass. 8. Dyslipidemia. HOSPITAL COURSE: Mr. Castillo is a 54-year-old gentleman who came into the emergency room with a 2- day history of worsening upper abdominal pain associated with nausea and vomiting. He was noted to have elevated lipase, and therefore was admitted to the hospital with the diagnosis of acute pancreatitis. He had been drinking excessive alcohol as well prior to coming into the hospital. He was admitted to the hospital and kept n.p.o. with IV fluids, and was treated with opioid analgesics for pain control. He also received IV thiamine, and his glucose levels were controlled with lispro insulin as per sliding scale. He was also given lorazepam for agitation, and was also started on amlodipine, the dosage of which was gradually increased to 10 mg today for blood pressure control. Furthermore, he received hydralazine IV on an as needed basis for elevated blood pressure. Gastroenterology consultation was obtained, who were actively involved in the care of this patient during this hospital admission. An EGD was performed by Gastroenterology that showed reflux esophagitis, gastritis, and duodenitis. The patient was treated with IV pantoprazole, initially with infusion, and then later on 40 mg IV every 12 hours since he had an episode of coffee-ground emesis while he was in the hospital. He did not have significant drop in hemoglobin and hematocrit, however. He continued to have epigastric abdominal discomfort, because of which we obtained CT scan of the abdomen and pelvis that showed a 9 mm hypodense area in the uncinate process of the pancreas. Further workup was recommended. Gastroenterology has recommended him to have outpatient ultrasound-guided endoscopic evaluation of the pancreatic mass either at [place] or [facility]. We will arrange that once he follows up at the office. Since the patient's overall condition has improved and he does not have any abdominal pain anymore, we are going to discharge him home today. His lipase levels have also normalized. DISCHARGE MEDICATIONS: 1. Nexium 40 mg orally once daily. 2. Amlodipine 10 mg orally once daily. 3. Folic acid 1 mg orally once daily. 4. Sucralfate 1 gram orally 4 times a day. 5. Tresiba insulin 30 units subcutaneously every 24 hours. 6. Lovastatin 40 mg orally once daily at bedtime. 7. Percocet 7.5 mg every 6 hours as needed for severe abdominal pain, with 20 pills and no refills. FOLLOWUP: He will follow up with the office in approximately 1 week. CONDITION: Stable. DISPOSITION: Home. cc: Kevin Tellez MD
--- NOTE | 2019-11-10 11:03 | GASTROENTEROLOGY PROGRESS NOTE ---
DATE: 11/10/2019 SUBJECTIVE: Mr. Castillo a 54-year-old male resting in bed. The patient has denied any nausea, vomiting, or abdominal pain. The patient has discharge orders to go home today. He mentions feeling better and excited to go home. OBJECTIVE: Vital Signs: Temperature 97.5 degrees, pulse 76, respirations 18, blood pressure 176/93, oxygen saturation 96% on room air. The patient's weight is 192 pounds, BMI is 27.5 kg/m2. General: He is alert, oriented x3, and in no acute distress. HEENT: Pale conjunctivae. No icterus. PERRL. Neck: Supple. Lungs: Clear to auscultation. Cardiovascular: Regular rate and rhythm. Abdomen: Mildly distended, nontender. Active bowel sounds heard in all 4 quadrants. Extremities: No clubbing, no cyanosis, no edema. Pedal pulses 2+ present bilaterally. Neurologic: Alert and oriented x3. LABORATORY DATA: WBC the patient has no new labs. His hematology is from 11/09/2019, WBC 11.26, RBC 4.58, hemoglobin 14.5, hematocrit is 42.7, platelet count is 267,000. Sodium 132, potassium 3.7, chloride 97, carbon dioxide 26, anion gap 9, BUN 8, creatinine 0.6, glucose 157, calcium 8.1. IMPRESSION AND PLAN: Alcoholic pancreatitis 9 mm lesion in the uncinate process of the pancreas on CT scan at [facility] in November 2019 Esophagitis GI bleed Gastritis Duodenitis Diabetes mellitus Polysubstance abuse PLAN: Mr. Castillo is a 54-year-old male with a history of alcohol, tobacco, and drug abuse. GI has been following him for his acute GI bleed. An EGD done showed that he had a LA grade D esophagitis, gastritis, hiatal hernia, and duodenitis. The patient had a subsequent lesion in the uncinate process of the pancreas. His abdominal pain has been improved. Patient was strongly recommended to quit alcohol completely. The patient is getting discharged today. We have advised the patient to follow us up in 4 weeks. Recommend another EGD in 3 months to assess for the healing of the esophagitis. The patient can continue PPIs twice a day for 3 months and he can continue Carafate liquid 4 times a day for 2 weeks. He will need outpatient EUS at [place] or [facility] for further work up of 9 mm lesion in the uncinate process of the pancreas. We will follow him as an outpatient. This plan was discussed with Dr. Zhou. Please call us for any further questions or concerns. Dictated by DELLA Sierra for Hossein Zohu MD cc: MD Kevin Inman MD I have seen and examined the patient myself and I agree with the above plan of care. Please call us with any further questions or concerns. IFRAH
== END 2019-11-10 12:18 | disposition home or self-care (01) | DRG 438 ==
LOC: ED 12:15 → 3N 16:22
PROVIDERS: ADMIT Internal Medicine; ATTEND Internal Medicine